=== PATIENT | female | born 1950 | race Caucasian/White ===

== ENCOUNTER 2017-11-20 15:26 | Inpatient (IN) | payer OTHER ==
[~2017-11-20] VITALS: Ht 154.9 cm; Wt 86.2 kg
[2017-12-10] MEDS ORDERED: AVAPRO300 MG PO (15:58)
[2017-12-10] MEDS ORDERED: VERAPAMIL ER240 MG PO (15:58)
[2017-12-10] MEDS ORDERED: HYDRALAZINE HCL25 MG PO (15:58)
[2017-12-10] MEDS ORDERED: DOXAZOSIN MESYLA2 MG PO (15:59)
[2017-12-10] MEDS ORDERED: LEVO-T25 MCG PO (15:59)
[2017-12-20] MEDS ORDERED: Intestinex CAP PO (17:56)
[2017-12-20] MEDS ORDERED: OXYC1TAB9 PO (17:56)
== END 2017-12-20 18:39 | disposition home or self-care (01) | DRG 330 ==
LOC: SURG 12-17 06:20 → O/R 12-17 06:20 → SURH 12-17 11:30 → MEDI 12-17 15:19 → SURG 12-17 15:19
PROVIDERS: Surgery
PROC: 07TC4ZZ Resection of Pelvis Lymphatic, Percutaneous Endoscopic Approach (ICD-10-PCS; 2017-12-17)
PROC: 4A033R1 Measurement of Arterial Saturation, Peripheral, Percutaneous Approach (ICD-10-PCS; 2017-12-17)
PROC: 4A12X4Z Monitoring of Cardiac Electrical Activity, External Approach (ICD-10-PCS; 2017-12-17)
PROC: 0DTG4ZZ Resection of Left Large Intestine, Percutaneous Endoscopic Approach (ICD-10-PCS; principal; 2017-12-17 13:15)
DX: D12.4 Benign neoplasm of descending colon (principal); C90.00 Multiple myeloma not having achieved remission; I11.9 Hypertensive heart disease without heart failure; E03.8 Other specified hypothyroidism; G47.33 Obstructive sleep apnea (adult) (pediatric); E66.8 Other obesity